=== PATIENT | female | born 1950 | race Caucasian/White ===

== ENCOUNTER 2018-07-09 18:46 | Observation (INO) | payer OTHER ==
[2018-07-09] MEDS ORDERED: ASPIRIN 81 MG CHEWABLE TABLETS PO ONE (18:52)
--- NOTE | 2018-07-09 18:52 | PDOC ---
Rapid Medical Evaluation Chief Complaint: Palpitations Time Seen by Provider: 07/09/18 18:50 Medical Evaluation: Allergies Allergy/AdvReac Type Severity Reaction Status Date / Time Sulfa (Sulfonamide Allergy Verified 07/09/18 18:49 Antibiotics) 07/09/18 18:51 Pt c/o: midsternal chest stabbing x 2 days w/ palpitation today Pt on brief exam: vss, lcta, no reproducible cp pt ordered for: cardiac w/u Pt to proceed to ED Discharge Disposition - Diagnosis Palpitations - Referrals - Patient Instructions - Post Discharge Activity
[2018-07-09] MEDS ORDERED: ASPIRIN 81 MG CHEWABLE TABLETS ONE (20:01)
[2018-07-09 20:23] LABS: HEMATOCRIT 37.5 % (32.4-45.2); LYMPH % 33.4 % (8-40); MCHC 34.6 g/dl (32.0-36.0); MEAN CELL VOLUME 89.5 fl (80-96); MEAN PLT VOLUME 9.9 fl (7.5-11.1); MONO % 10.5 % (3.8-10.2); NEUT % 54.1 % (42.8-82.8); PLATELET COUNT 214 K/MM3 (134-434); RDW 15.5 % (11.6-15.6); WHITE BLOOD COUNT 7.4 K/mm3 (4.0-10.0)
[2018-07-09 20:36] LABS: INR 0.96 (0.83-1.09); PROTHROMBIN TIME (PATIENT) 11.3 SEC (9.7-13.0)
[2018-07-09 20:59] LABS: ALBUMIN 3.7 g/dl (3.4-5.0); ALK PHOS 92 U/L (45-117); ANION GAP 11 MMOL/L (8-16); BILIRUBIN,TOTAL 0.4 mg/dL (0.2-1); BLOOD UREA NITROGEN 15 mg/dL (7-18); CALCIUM 9.1 mg/dL (8.5-10.1); CHLORIDE 104 mmol/L (98-107); CO2 25 mmol/L (21-32); CREATININE 0.8 mg/dL (0.55-1.3); GLUCOSE,RANDOM 104 mg/dL (74-106); SGPT/ALT 22 U/L (13-61); SODIUM 140 mmol/L (136-145); TOT PROT 8.1 g/dl (6.4-8.2)
[2018-07-09 21:00] LABS: MAGNESIUM 2.1 mg/dL (1.8-2.4); POTASSIUM 4.3 mmol/L (3.5-5.1); SGOT/AST 20 U/L (15-37)
--- NOTE | 2018-07-09 21:12 | PDOC ---
History of Present Illness - General Chief Complaint: Palpitations Stated Complaint: Palpitations Time Seen by Provider: 07/09/18 18:50 History Source: Patient - History of Present Illness Initial Comments: 07/09/18 21:57 67 year old female with midsternal chest pain 2 days with palpitations today with chest discomfort and slight dizziness. denies NVD, abdominal pain, urinary symptoms, headache, weakness. p,hx: cardiac catherization at [facility] 6 years ago . no recent cardiology follow up. PMD Dr. jain [facility] Past History - Past Medical History Allergies/Adverse Reactions: Allergies Allergy/AdvReac Type Severity Reaction Status Date / Time Sulfa (Sulfonamide Allergy Verified 07/09/18 18:49 Antibiotics) Home Medications: Ambulatory Orders Amlodipine Besylate/Benazepril [Lotrel 5-10 mg Capsule] 5 mg PO DAILY 12/18/13 Atorvastatin Ca [Lipitor] 20 mg PO HS 12/18/13 Benazepril HCl 10 mg PO DAILY 07/10/18 Isosorbide Mononitrate [Isosorbide Mononitrate ER] 30 mg PO DAILY 07/10/18 Sitagliptin Phosphate [Januvia] 100 mg PO DAILY 07/10/18 Aspirin [ASA -] 81 mg PO DAILY tab.chew 07/11/18 Metoprolol Tartrate [Lopressor -] 25 mg PO BID #60 tablet 07/11/18 Ranitidine [Zantac -] 150 mg PO DAILY tablet 07/11/18 Cardiac Disorders: Yes (STENT) COPD: No Diabetes: Yes (NIDM) HTN: Yes Hypercholesterolemia: Yes - Surgical History Cardiac Surgery: Yes (stents) - Immunization History Immunization Up to Date: Yes - Suicide/Smoking/Psychosocial Hx Smoking History: Never smoked Hx Alcohol Use: No Drug/Substance Use Hx: No Substance Use Type: None *Physical Exam - Vital Signs Last Vital Signs Temp Pulse Resp BP Pulse Ox 98 F 62 18 145/74 100 07/11/18 10:00 07/11/18 10:00 07/11/18 10:00 07/11/18 10:00 07/11/18 10:00 - Physical Exam General Appearance: Yes: Appropriately Dressed Respiratory/Chest: positive: Lungs Clear, Normal Breath Sounds. negative: Chest Tender Cardiovascular: positive: Regular Rhythm, Regular Rate Gastrointestinal/Abdominal: positive: Normal Bowel Sounds, Soft Musculoskeletal: positive: Normal Inspection Extremity: positive: Normal Capillary Refill, Normal Inspection, Normal Range of Motion Integumentary: positive: Normal Color, Dry, Warm Neurologic: positive: Fully Oriented, Alert, Normal Mood/Affect Heart Score/ECG Review - History History: Moderately suspicious - Electrocardiogram EKG: Normal - Age Age: >/= 65 - Risk Factors Risk Factors Heart Score: Yes Hx Hypercholesterolemia, Yes Hx Hypertension, Yes Hx Diabetes Based on the list above the patient has:: 1-2 risk factors - Troponin Troponin: </= normal limit - Score Heart Score - Total: 4 - ECG Intrepretation Rhythm: Regular Rhythm Comment:: 07/09/18 22:16 sinus bradycardia: 56bpm Moderate Sedation - Procedure Monitoring Vital Signs: Procedure Monitoring Vital Signs Temperature 98 F 07/11/18 10:00 Pulse Rate 62 07/11/18 10:00 Respiratory Rate 18 07/11/18 10:00 Blood Pressure 145/74 07/11/18 10:00 O2 Sat by Pulse Oximetry (%) 100 07/11/18 10:00 ED Treatment Course - LABORATORY CBC & Chemistry Diagram: 07/11/18 06:43 07/11/18 06:43 - ADDITIONAL ORDERS Additional order review: 07/09/18 20:14 RBC 4.20 MCV 89.5 MCHC 34.6 RDW 15.5 D MPV 9.9 Neutrophils % 54.1 Lymphocytes % 33.4 Monocytes % 10.5 H Eosinophils % 1.0 Basophils % 1.0 - Medications Given in the ED: ED Medications Discontinued Medications Generic Name Dose Route Start Last Admin Trade Name Lonnieq PRN Reason Stop Dose Admin Acetaminophen 650 mg 07/10/18 21:52 07/10/18 21:59 Tylenol - PO 07/10/18 21:53 650 mg ONCE ONE Administration Amlodipine Besylate 5 mg 07/10/18 10:00 07/11/18 13:56 Norvasc - PO 5 mg DAILY FAIZA Administration Aspirin 162 mg 07/09/18 18:52 07/09/18 20:13 Asa - PO 07/09/18 18:53 162 mg ONCE ONE Administration Aspirin 81 mg 07/10/18 10:00 07/11/18 13:56 Asa - PO 81 mg DAILY FAIZA Administration Atorvastatin Calcium 20 mg 07/10/18 22:00 07/10/18 21:59 Lipitor - PO 20 mg HS FAIZA Administration Enoxaparin Sodium 40 mg 07/10/18 10:00 07/11/18 15:05 Lovenox - SQ Not Given DAILY FAIZA Insulin Aspart 1 vial 07/10/18 07:00 07/11/18 13:57 Novolog Vial Sliding Scale - SQ Not Given [facility] Protocol Lisinopril 10 mg 07/10/18 10:00 07/11/18 13:57 Prinivil PO 10 mg DAILY FAIZA Administration Metoprolol Tartrate 25 mg 07/10/18 10:00 07/11/18 13:56 Lopressor - PO 25 mg BID FAIZA Administration Pneumococcal 13-Valent Conj Vacc 0.5 ml 07/10/18 20:35 07/10/18 22:32 Prevnar 13 Syringe - IM 07/10/18 20:36 0.5 ml .ONCE ONE Administration Ranitidine HCl 150 mg 07/10/18 10:00 07/11/18 13:57 Zantac - PO 150 mg DAILY FAIZA Administration Medical Decision Making - Medical Decision Making 07/09/18 22:15 A: chest pain P: labs EKG chest xray ekg patient to placed on observation for palpitation. signed out to Dr. jensen/ Suni *DC/Admit/Observation/Transfer Diagnosis at time of Disposition: Palpitations - Discharge Dispostion Disposition: HOME Condition at time of disposition: Improved Decision to Admit order: Yes - Prescriptions - Referrals - Patient Instructions - Post Discharge Activity
[2018-07-09 21:58] LABS: URINE APPEARANCE CLEAR; URINE BILIRUBIN NEGATIVE (<2.0 mg/dL); URINE COLOR COLORLESS; URINE GLUCOSE (UA) NEGATIVE (NEGATIVE); URINE KETONE NEGATIVE (NEGATIVE); URINE LEUK ESTERASE NEGATIVE (NEGATIVE); URINE NITRITE NEGATIVE (NEGATIVE); URINE PROTEIN NEGATIVE (NEGATIVE); URINE UROBILINOGEN NEGATIVE mg/dL (0.2-1.0)
--- NOTE | 2018-07-09 23:56 | HP ---
CHIEF COMPLAINT: Chest pain, palpitations PCP: HISTORY OF PRESENT ILLNESS: The patient is Surinamese speaking. The history was abtained with the help of [employer] lead #[id number] The patient is a 67 yo f w/ PMH CAD s/p stenting in 2011, DM, HTN, HLD who comes into the ED c/o a 2 day history of right sided chest pain and palpitations. The patient states that since Sunday evening, she has been experiencing a sharp, right sided chest pain which does not radiate. The patient states that the pain was initially 10/10 in intensity, but has been improving since it's onset. The patient states that the pain is exacerbated by movement and alleviated by staying still. The patient had a cardiac cath and stent placement in June of 2012 at [facility], but has not been able to follow up with a heading matcher and assembler since then due to insurance issues. The patient denies SOB, abdominal pain, fevers, chills. ER course was notable for: (1) Trop negative x1 (2) EKG Showing sinus curt at 56 (3) CXR WNL Recent Travel: none PAST MEDICAL HISTORY: see HPI PAST SURGICAL HISTORY: Stenting in june of 2012 Hysterectomy Social History: Smoking: never Alcohol: none Drugs: none Family History: Father of a stroke Mother 2/2 unknown cardiac complications Allergies Sulfa (Sulfonamide Antibiotics) Allergy (Verified 07/09/18 18:49) HOME MEDICATIONS: Home Medications Medication Instructions Recorded Amlodipine Besylate/Benazepril 1 each PO DAILY 12/18/13 [Lotrel 5-10 mg Capsule] Aspirin 81 mg PO DAILY 12/18/13 Atorvastatin Ca [Lipitor -] 20 mg PO HS 12/18/13 Calcium Carb/Vit D3/Minerals 1 each PO DAILY 12/18/13 [Calcium +D & Min Chew Tab] Clopidogrel Bisulfate [Plavix -] 75 mg PO DAILY 12/18/13 Cromolyn Na 4% Ophth Soln [Crolom] 10 ml OD TID 12/18/13 Glipizide Xl [Glucotrol Xl -] 10 mg PO DAILY@0700 12/18/13 Hypromellose [Artificial Tears] 15 ml OP BID PRN 12/18/13 Metoprolol Succinate [Toprol XL -] 25 mg PO BID 12/18/13 Nitroglycerin [Nitrostat] 0.4 mg SL ONCE PRN 12/18/13 Ranitidine HCl [Zantac] 150 mg PO DAILY 07/25/14 Acetaminophen [Tylenol 500 mg PO Q6H #20 tablet 07/26/14 .Extra-Strength -] levoFLOXacin [Levaquin -] 500 mg PO DAILY #7 tablet 11/12/14 REVIEW OF SYSTEMS CONSTITUTIONAL: Absent: fever, chills, diaphoresis, generalized weakness, malaise, loss of appetite, weight change HEENT: Absent: rhinorrhea, nasal congestion, throat pain, throat swelling, difficulty swallowing, mouth swelling, ear pain, eye pain, visual changes CARDIOVASCULAR: Absent: syncope, lightheadedness, peripheral edema RESPIRATORY: Absent: cough, shortness of breath, dyspnea with exertion, orthopnea, wheezing, stridor, hemoptysis GASTROINTESTINAL: Absent: abdominal pain, abdominal distension, nausea, vomiting, diarrhea, constipation, melena, hematochezia GENITOURINARY: Absent: dysuria, frequency, urgency, hesitancy, hematuria, flank pain, genital pain MUSCULOSKELETAL: Absent: myalgia, arthralgia, joint swelling, back pain, neck pain SKIN: Absent: rash, itching, pallor HEMATOLOGIC/IMMUNOLOGIC: Absent: easy bleeding, easy bruising, lymphadenopathy, frequent infections ENDOCRINE: Absent: unexplained weight gain, unexplained weight loss, heat intolerance, cold intolerance NEUROLOGIC: Absent: headache, focal weakness or paresthesias, dizziness, unsteady gait, seizure, mental status changes, bladder or bowel incontinence PSYCHIATRIC: Absent: anxiety, depression, suicidal or homicidal ideation, hallucinations. PHYSICAL EXAMINATION Vital Signs - 24 hr 07/09/18 18:50 Temperature 98.2 F Pulse Rate 62 Respiratory 16 Rate Blood Pressure 134/64 O2 Sat by Pulse 100 Oximetry (%) GENERAL: Awake, alert, and fully oriented, in no acute distress. HEAD: Normal with no signs of trauma. EYES: Pupils equal, round and reactive to light, extraocular movements intact, sclera anicteric, conjunctiva clear. No lid lag. NECK: Normal range of motion, supple without lymphadenopathy, JVD, or masses. LUNGS: Breath sounds equal, clear to auscultation bilaterally. No wheezes, and no crackles. No accessory muscle use. HEART: Regular rate and rhythm, normal S1 and S2 without murmur, rub or gallop. ABDOMEN: Soft, nontender, not distended, normoactive bowel sounds, no guarding, no rebound, no masses. No hepatomegaly or splenomegaly. LOWER EXTREMITIES: 2+ pulses, warm, well-perfused. No calf tenderness. No peripheral edema. NEUROLOGICAL: Cranial nerves II-X intact. Normal speech. Normal gait. PSYCHIATRIC: Cooperative. Good eye contact. Appropriate mood and affect. SKIN: Warm, dry, normal turgor, no rashes or lesions noted, normal capillary refill. Laboratory Results - last 24 hr 07/09/18 07/09/18 07/09/18 20:14 20:14 20:14 WBC 7.4 RBC 4.20 Hgb 13.0 Hct 37.5 MCV 89.5 MCH 31.0 MCHC 34.6 RDW 15.5 D Plt Count 214 D MPV 9.9 Absolute Neuts (auto) 4.0 Neutrophils % 54.1 Lymphocytes % 33.4 Monocytes % 10.5 H Eosinophils % 1.0 Basophils % 1.0 Nucleated RBC % 0 PT with INR 11.30 INR 0.96 Sodium 140 Potassium 4.3 Chloride 104 Carbon Dioxide 25 Anion Gap 11 BUN 15 Creatinine 0.8 Creat Clearance w eGFR > 60 Random Glucose 104 Calcium 9.1 Magnesium 2.1 Total Bilirubin 0.4 AST 20 ALT 22 Alkaline Phosphatase 92 Creatine Kinase 132 Troponin I < 0.02 Total Protein 8.1 Albumin 3.7 Urine Color Urine Appearance Urine pH Ur Specific [place] Urine Protein Urine Glucose (UA) Urine Ketones Urine Blood Urine Nitrite Urine Bilirubin Urine Urobilinogen Ur Leukocyte Esterase 07/09/18 21:49 WBC RBC Hgb Hct MCV MCH MCHC RDW Plt Count MPV Absolute Neuts (auto) Neutrophils % Lymphocytes % Monocytes % Eosinophils % Basophils % Nucleated RBC % PT with INR INR Sodium Potassium Chloride Carbon Dioxide Anion Gap BUN Creatinine Creat Clearance w eGFR Random Glucose Calcium Magnesium Total Bilirubin AST ALT Alkaline Phosphatase Creatine Kinase Troponin I Total Protein Albumin Urine Color Colorless Urine Appearance Clear Urine pH 5.0 D Ur Specific [place] 1.005 L Urine Protein Negative Urine Glucose (UA) Negative Urine Ketones Negative Urine Blood Negative Urine Nitrite Negative Urine Bilirubin Negative Urine Urobilinogen Negative Ur Leukocyte Esterase Negative ASSESSMENT/PLAN: The patient is a 67 yo f w/ PMH CAD, DM, HTN, HLD who comes into the ED c/o right sided chest pain/pressure and palpitations for the past 2 days. #Chest pain/pressure likely 2/2 musculoskeletal strain, r/o ACS -must r/o ACS given patient's risk factors, the fact that she has DM and the fact that she is female. -trop negative x1 -EKG unremarkable -pain improving -Will check TSH for possible cause of palpitations -Patient on toprol xl 25 BID according to EMR, which is an unconventional dosing and may contribute to her ssx -Will change patient to lopressor PO 25 BID -monitor on tele -lipid panel in the AM -patient may benefit from repeat stress test -obtain cath records from [facility] in the AM #DM -ISS ACHS -BGM ACHS -A1c in the AM #FEN -no fluids indicated -lytes WNL -diabetic diet #Prophy -lovenox 40mg SQ daily #Dispo -admit tele obs Visit type - Emergency Visit Emergency Visit: Yes ED Registration Date: 07/09/18 Care time: The patient presented to the Emergency Department on the above date and was hospitalized for further evaluation of their emergent condition. - New Patient This patient is new to me today: Yes Date on this admission: 07/10/18 - Critical Care Critical Care patient: No
--- NOTE | 2018-07-10 02:29 | PN ---
Teaching Attending Note Name of Resident: Chucho Long ATTENDING PHYSICIAN STATEMENT I saw and evaluated the patient. I reviewed the resident's note and discussed the case with the resident. I agree with the resident's findings and plan as documented. SUBJECTIVE: Seen and examined; please see resident note for further details; in summation this is a 67 y/o HF with a PMH of CAD s/p PCI at [facility] 2011 (likely [facility] as still on plavix) with no stress test/caths since. She presents with atypical, reproducible chest pain on the righr upper chest near the sternum not made better with anything and that is made worse with movement; she hasn't seen anyone else for this. Not typical in nature; radiates throughout the area. The pain began Sunday evening. No recent trauma, etc. etc. She has also been dizzy for several days; noted to have HR in the low 50s and gideon taking metoprolol succinate twice daily. Troponin negative x2. Records from [facility] pending to delineate her coronary anatomy from her prior cath. TSH, A1c, pending. EKG without frankly concerning ST-T changes. Will place on medicine service on observation to rule out ACS. 10 sys ROS done and negative aside from HPI PMH and PSH reviewed FH asked and noncontributory Socially denies current EtOH or Tobacco abuse OBJECTIVE: VS, labs, imaging reviewed NAD, resting in bed RRR s1/2 no mgr lungs CTAB with sym expansion NT ND +BS CN2-12 wnl, no fnd CBC, chemistry, LFTs, unremarkable. Cardiac enzymes negative x2. CXR unremarkable EKG reviewed; essentially unchanged from prior studies ASSESSMENT AND PLAN: This is a 67 y/o female who is high risk for CAD presenting with atypical chest pain, will rule out acute coronary syndrome 1) Atypical Chest Pain -Needs old records from [facility] to delineate coronary anatomy; she hasn't been following with CV so we will refer her to cardiology upon discharge. -Monitor tele, obtain a third troponin. Checking TSH, A1c, Lipids -Treat any underlying musculoskeletal CP -Obtaining stress test (givenher dizziness, etc. would recommend pharm over treadmill) and if indicated from our results would involve cardiology. 2) CAD -Continue home medications aside from changing the succinate to tartrate; she has had the stent many years ago so will need to discuss with CV as an outpatient any potential changes to her antiplatelet tx. 3) Dizziness with palpitations -Could be related to the low HR (50s) which may be related to her dose of BB. Will change her succinate from 25 BID to tartrate 25 BID and observe for response. She did have an increase in her HR from 8-10 bpm when a chronotropic response was elicited by ambulation. We will monitor telemetry and observe. Furthermore if she is getting any hypoglycemia at home from sulfonylurea use this could contribute so we will hold her home CASTRO; as she is >65 it would be prudent to DC this drug all together. 4) DM -Hold PO meds; SSI while inpatient. 5) HTN -Monitor when inpatient; GDMT on DC Full Code
[2018-07-10] MEDS: INSULIN SLIDING SCALE (NOVOLOG) 1 VIAL SQ SCH ×4 (06:22→21:58)
[2018-07-10 06:36] LABS: HEMATOCRIT 37.8 % (32.4-45.2); HEMOGLOBIN 12.2 GM/dL (10.7-15.3); MCH 29.4 pg (25.7-33.7); MCHC 32.4 g/dl (32.0-36.0); MEAN CELL VOLUME 90.8 fl (80-96); MEAN PLT VOLUME 9.8 fl (7.5-11.1); PLATELET COUNT 174 K/MM3 (134-434); RBC 4.16 M/mm3 (3.60-5.2); RDW 15.2 % (11.6-15.6); WHITE BLOOD COUNT 6.5 K/mm3 (4.0-10.0)
[2018-07-10 07:00] LABS: INR 1.03 (0.83-1.09); PROTHROMBIN TIME (PATIENT) 12.1 SEC (9.7-13.0)
[2018-07-10 09:37] LABS: ALBUMIN 3.2 g/dl (3.4-5.0); ALK PHOS 88 U/L (45-117); ANION GAP 7 MMOL/L (8-16); BILIRUBIN,TOTAL 0.4 mg/dL (0.2-1); BLOOD UREA NITROGEN 16 mg/dL (7-18); CALCIUM 8.7 mg/dL (8.5-10.1); CHLORIDE 106 mmol/L (98-107); CHOLESTEROL 139 mg/dL (50-200); CO2 27 mmol/L (21-32); CREATININE 0.8 mg/dL (0.55-1.3); GLUCOSE,RANDOM 113 mg/dL (74-106); HDL CHOLESTEROL 57 mg/dL (40-60); MAGNESIUM 2.2 mg/dL (1.8-2.4); PHOSPHOROUS 4.4 mg/dL (2.5-4.9); POTASSIUM 3.8 mmol/L (3.5-5.1); SGOT/AST 16 U/L (15-37); SGPT/ALT 20 U/L (13-61); SODIUM 139 mmol/L (136-145); TOT PROT 7.2 g/dl (6.4-8.2); TRIGLYCERIDES 149 mg/dL (0-150)
[2018-07-10] MEDS ORDERED: PATIENT'S OWN MEDICATION (NON-FORMULARY) (Amlodipine Besylate/Benazepril [Lotrel 5-10 Mg C PO SCH (10:00)
--- NOTE | 2018-07-10 11:12 | PN ---
Physical Exam: SUBJECTIVE: Patient seen and examined. Pt. complains of intermittent chest pain w/ burning in right side, and with palpitations associated with anxiety. Pt. also had "heaviness" in head that is not associated with chest pain. Pt. denies any chest pain currently. OBJECTIVE: Vital Signs Period Temp Pulse Resp BP Sys/[place] Pulse Ox Last 24 Hr 98.2 F 56-62 14-18 125-135/54-78 98-100 GENERAL: The patient is awake, alert, and fully oriented, in no acute distress. EYES: Sclera anicteric, conjunctiva clear. No ptosis. ENT: Ears normal, nares patent, moist mucous membranes. NECK: Trachea midline, full range of motion, supple, No JVD LUNGS: Breath sounds equal, clear to auscultation bilaterally, no wheezes, no crackles, no accessory muscle use. HEART: Regular rate and rhythm, S1, S2 without murmur, rub or gallop. ABDOMEN: Soft, nontender, nondistended, normoactive bowel sounds, no guarding, no rebound EXTREMITIES: 2+ dorsal pedal pulses, warm, no calf tenderness, well-perfused, no edema, moves all limbs spontaneously with equal strength. NEUROLOGICAL: Normal speech, gait not observed. PSYCH: Normal mood, normal affect. SKIN: Warm, dry, normal turgor Laboratory Results - last 24 hr 07/09/18 07/09/18 07/09/18 20:14 20:14 20:14 WBC 7.4 RBC 4.20 Hgb 13.0 Hct 37.5 MCV 89.5 MCH 31.0 MCHC 34.6 RDW 15.5 D Plt Count 214 D MPV 9.9 Absolute Neuts (auto) 4.0 Neutrophils % 54.1 Lymphocytes % 33.4 Monocytes % 10.5 H Eosinophils % 1.0 Basophils % 1.0 Nucleated RBC % 0 PT with INR 11.30 INR 0.96 Sodium 140 Potassium 4.3 Chloride 104 Carbon Dioxide 25 Anion Gap 11 BUN 15 Creatinine 0.8 Creat Clearance w eGFR > 60 POC Glucometer Random Glucose 104 Hemoglobin A1c % Calcium 9.1 Phosphorus Magnesium 2.1 Total Bilirubin 0.4 AST 20 ALT 22 Alkaline Phosphatase 92 Creatine Kinase 132 Troponin I < 0.02 Total Protein 8.1 Albumin 3.7 Triglycerides Cholesterol Total LDL Cholesterol HDL Cholesterol TSH Urine Color Urine Appearance Urine pH Ur Specific [place] Urine Protein Urine Glucose (UA) Urine Ketones Urine Blood Urine Nitrite Urine Bilirubin Urine Urobilinogen Ur Leukocyte Esterase 07/09/18 07/10/18 07/10/18 21:49 01:32 05:52 WBC 6.5 RBC 4.16 Hgb 12.2 Hct 37.8 MCV 90.8 MCH 29.4 MCHC 32.4 RDW 15.2 Plt Count 174 MPV 9.8 Absolute Neuts (auto) Neutrophils % Lymphocytes % Monocytes % Eosinophils % Basophils % Nucleated RBC % PT with INR INR Sodium Potassium Chloride Carbon Dioxide Anion Gap BUN Creatinine Creat Clearance w eGFR POC Glucometer Random Glucose Hemoglobin A1c % Calcium Phosphorus Magnesium Total Bilirubin AST ALT Alkaline Phosphatase Creatine Kinase Troponin I < 0.02 Total Protein Albumin Triglycerides Cholesterol Total LDL Cholesterol HDL Cholesterol TSH Urine Color Colorless Urine Appearance Clear Urine pH 5.0 D Ur Specific [place] 1.005 L Urine Protein Negative Urine Glucose (UA) Negative Urine Ketones Negative Urine Blood Negative Urine Nitrite Negative Urine Bilirubin Negative Urine Urobilinogen Negative Ur Leukocyte Esterase Negative 07/10/18 07/10/18 07/10/18 05:52 05:52 05:52 WBC RBC Hgb Hct MCV MCH MCHC RDW Plt Count MPV Absolute Neuts (auto) Neutrophils % Lymphocytes % Monocytes % Eosinophils % Basophils % Nucleated RBC % PT with INR 12.10 INR 1.03 Sodium 139 Potassium 3.8 Chloride 106 Carbon Dioxide 27 Anion Gap 7 L BUN 16 Creatinine 0.8 Creat Clearance w eGFR > 60 POC Glucometer Random Glucose 113 H Hemoglobin A1c % 7.3 H Calcium 8.7 Phosphorus 4.4 Magnesium 2.2 Total Bilirubin 0.4 AST 16 ALT 20 Alkaline Phosphatase 88 Creatine Kinase Troponin I Total Protein 7.2 Albumin 3.2 L Triglycerides 149 Cholesterol 139 Total LDL Cholesterol 63 HDL Cholesterol 57 TSH 3.23 Urine Color Urine Appearance Urine pH Ur Specific [place] Urine Protein Urine Glucose (UA) Urine Ketones Urine Blood Urine Nitrite Urine Bilirubin Urine Urobilinogen Ur Leukocyte Esterase 07/10/18 07/10/18 07/10/18 05:52 06:16 10:07 WBC RBC Hgb Hct MCV MCH MCHC RDW Plt Count MPV Absolute Neuts (auto) Neutrophils % Lymphocytes % Monocytes % Eosinophils % Basophils % Nucleated RBC % PT with INR INR Sodium Potassium Chloride Carbon Dioxide Anion Gap BUN Creatinine Creat Clearance w eGFR POC Glucometer [id number] Random Glucose Hemoglobin A1c % Calcium Phosphorus Magnesium Total Bilirubin AST ALT Alkaline Phosphatase Creatine Kinase Troponin I < 0.02 Total Protein Albumin Triglycerides Cancelled Cholesterol Cancelled Total LDL Cholesterol Cancelled HDL Cholesterol Cancelled TSH Urine Color Urine Appearance Urine pH Ur Specific [place] Urine Protein Urine Glucose (UA) Urine Ketones Urine Blood Urine Nitrite Urine Bilirubin Urine Urobilinogen Ur Leukocyte Esterase Active Medications Current Medications Amlodipine Besylate (Norvasc -) 5 mg PO DAILY [facility] Aspirin (Asa -) 81 mg PO DAILY [facility] Atorvastatin Calcium (Lipitor -) 20 mg PO HS [facility] Enoxaparin Sodium (Lovenox -) 40 mg SQ DAILY [facility] Insulin Aspart (Novolog Vial Sliding Scale -) 1 vial SQ ACHS [facility]; Protocol Last Admin: 07/10/18 06:22 Dose: Not Given Lisinopril (Prinivil) 10 mg PO DAILY [facility] Metoprolol Tartrate (Lopressor -) 25 mg PO BID [facility] Ranitidine HCl (Zantac -) 150 mg PO DAILY [facility] Home Medications Medication Instructions Recorded Amlodipine Besylate/Benazepril 1 each PO DAILY 12/18/13 [Lotrel 5-10 mg Capsule] Aspirin 81 mg PO DAILY 12/18/13 Atorvastatin Ca [Lipitor -] 20 mg PO HS 12/18/13 Calcium Carb/Vit D3/Minerals 1 each PO DAILY 12/18/13 [Calcium +D & Min Chew Tab] Hypromellose [Artificial Tears] 15 ml OP BID PRN 12/18/13 Metoprolol Succinate [Toprol XL -] 25 mg PO BID 12/18/13 Nitroglycerin [Nitrostat] 0.4 mg SL ONCE PRN 12/18/13 Ranitidine HCl [Zantac] 150 mg PO DAILY 07/25/14 Acetaminophen [Tylenol 500 mg PO Q6H #20 tablet 07/26/14 .Extra-Strength -] Sitagliptin Phosphate [Januvia -] 25 mg PO DAILY 07/10/18 ASSESSMENT/PLAN: The patient is a 67 yo F w/ PMHx. CAD s/p stenting in 2011, DM, HTN, HLD presents to the ED with a 2 day history of right sided chest pain and palpitations. -R/O ACS Heart Score: 5 Troponin Neg. x 3 EKG: NSR c/w Metoprolol Tartrate 25mg BID Given HEART Score Pt. underwent part 1 of the Sestamibi Stress test, will continue w/ Part 2 tomorrow including echocardiography. c/w telemetry monitoring Stress test in 2016 at [facility] showed EF of 70%, mild small distal anterolateral perfusion defect likely due to breast attenuation Pt.'s senior network engineer is Cesia Reed ([phone]) -DM ISS hold oral medications BGM TIDAC ISS TIDAC A1c: 7.3% -HTN c/w Lopressor 25mg BID BP controlled -F/E/N No IVF, encourage PO intake monitor electrolytes replete as needed Diabetic diet -DVT Ppx. Lovenox 40mg SQ Visit type - Emergency Visit Emergency Visit: Yes ED Registration Date: 07/09/18 Care time: The patient presented to the Emergency Department on the above date and was hospitalized for further evaluation of their emergent condition. - New Patient This patient is new to me today: Yes Date on this admission: 07/10/18 - Critical Care Critical Care patient: No - Discharge Referral Referred to [facility] Med P.C.: No
--- NOTE | 2018-07-10 11:45 | EKG ---
Test Reason : Blood Pressure : / mmHG Vent. Rate : 056 BPM Atrial Rate : 056 BPM P-R Int : 136 ms QRS Dur : 096 ms QT Int : 444 ms P-R-T Axes : -20 017 017 degrees QTc Int : 428 ms SINUS BRADYCARDIA OTHERWISE NORMAL ECG WHEN COMPARED WITH ECG OF 12-NOV-2014 20:53, NO SIGNIFICANT CHANGE WAS FOUND Confirmed by TIAGO ARREDONDO MD ([id number]) on 07/10/2018 11:45:14 AM Referred By: ANSELMO Confirmed By:TIAGO ARREDONDO MD
[2018-07-10] MEDS: ASPIRIN 81 MG CHEWABLE TABLETS PO SCH (14:37)
[2018-07-10] MEDS: LISINOPRIL 10 MG TABLET (FP) PO SCH (14:38)
[2018-07-10] MEDS: amLODIPine BESYLATE 5 MG TABLET (FP) PO SCH (14:38)
[2018-07-10] MEDS: METOPROLOL TARTRATE 25 MG TABLET (FP) PO SCH ×2 (14:38→22:03)
[2018-07-10] MEDS: RANITIDINE HCL 150 MG TABLET (FP) PO SCH (14:39)
--- NOTE | 2018-07-10 15:01 | PN ---
Teaching Attending Note Name of Resident: Trevin Pérez ATTENDING PHYSICIAN STATEMENT I saw and evaluated the patient. I reviewed the resident's note and discussed the case with the resident. I agree with the resident's findings and plan as documented. SUBJECTIVE: no fever or chills. denies CP at time of eval ( 10:30am ) has no SOB. reports SOB and chest discomfort with exertion . 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 re[prots stopping plavix per card advise a year ago and cont to take ASA she missed her asa for a week now OBJECTIVE: NAD Cv: RRR. , no MRG lungs: CTAB ext : no edema Abd: soft, Nt, Nd , NL BS ASSESSMENT AND PLAN: 67 y/o lady with h/o HTN, DM, HLP, CAD s/p PCI with stents in 2011 who presented with L sided CP x 2. 1- L sided CP : has some typical features , and patient is at high risk . she did not take ASA x 1 week and has exertional sx . EKG with L 1st degree AV block. TWI in V1, 2 ( old ) , trop ng x 2 - check stress test ( Sestamibi ) - echo - card consult - obtain records - cont asa and BB 2- Bradycardia : has 1st degree AV block. will confirm her dose of BB . - cont lopressor 2 bid for now ( might have been on toprol 25 bid ) - tele 3- DM : denies any hypoglycemia a nayeli - cont SSI while here 4- Dispo : pending cardiac w/u
[2018-07-10] MEDS: ENOXAPARIN NA (PORCINE) 40 MG/0.4 ML DISP.SYRIN SQ SCH (15:59)
--- NOTE | 2018-07-10 17:00 | CON.CARD ---
Consult Consult Specialty:: Cardiology Referred by:: Hospitalist Reason for Consultation:: chest pain - History of Present Illness Chief Complaint: chest pain History of Present Illness: 67 year old woman with pmh DM, HTN, HLD, CAD s/p stent years ago, followed by Dr. Reed admitted with 2 day history of who comes into the ED c/o a 2 day history of right sided chest pain and palpitations. pt seen and examined today in nad. no further chest pain or palpitations. had part 1 of stress test today and awaiting echo and part 2 of stress. - History Source History Provided By: Patient, Medical Record Limitations to Obtaining History: No Limitations - Past Medical History Cardio/Vascular: Yes: CAD, HTN, Hyperlipdemia - Alcohol/Substance Use Hx Alcohol Use: No - Smoking History Smoking history: Never smoked - Social History ADL: Independent History of Recent Travel: No Home Medications - Allergies Allergies/Adverse Reactions: Allergies Allergy/AdvReac Type Severity Reaction Status Date / Time Sulfa (Sulfonamide Allergy Verified 07/09/18 18:49 Antibiotics) - Home Medications Home Medications: Ambulatory Orders Amlodipine Besylate/Benazepril [Lotrel 5-10 mg Capsule] 5 mg PO DAILY 12/18/13 Aspirin 81 mg PO DAILY 12/18/13 Atorvastatin Ca [Lipitor -] 20 mg PO HS 12/18/13 Calcium Carb/Vit D3/Minerals [Calcium +D & Min Chew Tab] 1 each PO DAILY Hypromellose [Artificial Tears] 15 ml OP BID PRN 12/18/13 Metoprolol Succinate [Toprol XL -] 25 mg PO DAILY 12/18/13 Nitroglycerin [Nitrostat] 0.4 mg SL ONCE PRN 12/18/13 Ranitidine HCl [Zantac] 150 mg PO DAILY 07/25/14 Acetaminophen [Tylenol .Extra-Strength -] 500 mg PO Q6H #20 tablet 07/26/14 Benazepril HCl 10 mg PO DAILY 07/10/18 Isosorbide Mononitrate [Isosorbide Mononitrate ER] 30 mg PO DAILY 07/10/18 Sitagliptin Phosphate [Januvia -] 25 mg PO DAILY 07/10/18 Sitagliptin Phosphate [Januvia] 100 mg PO DAILY 07/10/18 Family Disease History - Family Disease History Family History: Denies Review of Systems - Review of Systems Constitutional: denies: No Symptoms, Chills, Diaphoresis, Fever, Lethargy, Loss of Appetite, Malaise, Night Sweats, Unintentional Wgt. Loss, Weakness, Other Eyes: denies: No Symptoms, Blind Spots, Blurred Vision, Double Vision, Eye Pain , Floaters, Photophobia, Recent Change in Vision, Other HENT: denies: No Symptoms, Difficult Swallowing, Ear Discharge, Ear Pain, Epistaxis, Gingival Bleeding, Hearing Loss, Mouth Swelling, Nasal Congestion, Ocular Prosthesis, Throat Pain, Toothache, Ringing in Ears, Other Neck: denies: No Symptoms, Decreased ROM, Lumps, Pain on Movement, Stiffness, Swollen Glands, Tenderness, Other Cardiovascular: reports: Chest Pain, Palpitations. denies: No Symptoms, Edema, Shortness of Breath, Other Respiratory: denies: No Symptoms, Cough, Exercise Intolerance, Hemoptysis, Orthopnea, PND, Snoring, SOB, SOB on Exertion, Wheezing, Other Gastrointestinal: denies: No Symptoms, Abdominal Pain, Bloating, Constipation, Diarrhea, Dysphagia, Indigestion, Melena, Nausea, Rectal Bleeding, Vomiting, Vomiting Blood, Other Genitourinary: denies: No Symptoms, Burning, Discharge, Dysuria, Flank Pain, Frequency, Hematuria, Incontinence, Lesions, Menses, Pain, Testicular Mass, Testicular Pain, Testicular Swelling, Urgency, Vaginal Bleeding, Other Breasts: denies: No Symptoms Reported, See HPI, Breast Implants, Discharge from Nipple, Lumps, Pain, Skin Changes, Other Musculoskeletal: denies: No Symptoms, Back Pain, Crepitus, Decreased ROM, Extremity Pain, Joint Pain, Joint Swelling, Muscle Pain, Muscle Cramps, Muscle Weakness, Other Integumentary: denies: No Symptoms, Blister, Bruising, Change in Color, Eczema, Erythema, Incision, Lesions, Lump, Pallor, Pruritis, Rash, Wound, Other Neurological: denies: No Symptoms, Change in LOC, Change in Speech, Confusion, Dizziness, Headache, Incoordination, Numbness, Parasthesia, Pre-Existing Deficit , Seizure, Syncope, Tremors, Unsteady Gait, Weakness, Other Endocrine: denies: No Symptoms, Excessive Sweating, Flushing, Increased Hunger, Increased Thirst, Intolerance to Cold, Intolerance to Heat, Unexplained Weight Gain, Unexplained Weight Loss, Other Hematology/Lymphatic: denies: No Symptoms, Easily Bruised, Excessive Bleeding, Swollen Glands, Other Psychiatric: denies: No Symptoms, Altered Sleep Pattern, Anxiety, Depression, Hallucinations, Panic, Paranoia, Suicidal, Other - Risk Factors Known Risk Factors: Yes: Hypercholesterolemia, Hypertension Vital Signs: Vital Signs Temperature 98.1 F 07/10/18 15:52 Pulse Rate 55 L 07/10/18 15:52 Respiratory Rate 18 07/10/18 15:52 Blood Pressure 109/62 07/10/18 15:52 O2 Sat by Pulse Oximetry (%) 19 L 07/10/18 15:52 Constitutional: Yes: Well Nourished, No Distress, Calm Eyes: Yes: WNL, Conjunctiva Clear, EOM Intact, PERRL HENT: Yes: WNL, Atraumatic, Normocephalic Neck: Yes: WNL, Supple, Trachea Midline Respiratory: Yes: WNL, Regular, CTA Bilaterally. No: Rales, Rhonchi, Wheezes Gastrointestinal: Yes: WNL, Normal Bowel Sounds, Soft. No: Distention, Tenderness Renal/: Yes: WNL Cardiovascular: Yes: WNL, Regular Rate and Rhythm. No: Bradycardia, Tachycardia , Pulse Irregular, Gallop, Rub, Varicosities JVD: No Carotid Bruit: No PMI: Non-Displaced Heart Sounds: Yes: S1, S2. No: Split S2, S3, S4, Clicks, Gallop, Rub, Bruit Murmur: No: Systolic Murmur, Diastolic Murmur Musculoskeletal: Yes: WNL Extremities: Yes: WNL Edema: No Peripheral Pulses WNL: Yes Peripheral Pulses: 2+ Left Doralis Pedis, 2+ Right Dorsalis Pedis Integumentary: Yes: WNL Neurological: Yes: WNL, Alert, Oriented ...Motor Strength: WNL Psychiatric: Yes: WNL, Alert, Oriented - Other Data Labs, Other Data: CBC, BMP 07/10/18 05:52 07/10/18 05:52 INR, PTT INR 1.03 (0.83-1.09) 07/10/18 05:52 Troponin, BNP 07/09/18 07/10/18 07/10/18 20:14 01:32 10:07 Troponin I < 0.02 < 0.02 < 0.02 Troponin, BNP 07/09/18 07/10/18 07/10/18 20:14 01:32 10:07 Troponin I < 0.02 < 0.02 < 0.02 ekg sinus curt 56bpm otherwise normal ecg Imaging - Results Chest X-ray: Report Reviewed, Image Reviewed EKG: Report Reviewed, Image Reviewed Other: Report Reviewed, Image Reviewed Assessment/Plan 67 year old woman with pmh DM, HTN, HLD, CAD s/p stent years ago, followed by Dr. Reed admitted with 2 day history of who comes into the ED c/o a 2 day history of right sided chest pain and palpitations. Chest pain-h/o cad and stent, palpitations no further chest pain or palpitations. ekg showed no ischemia cardiac enzymes wnl had part 1 of stress test today and awaiting echo and part 2 of stress. 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
[2018-07-10 20:35] VITALS: BMI 33.6
[2018-07-10] MEDS ORDERED: PNEUMOC 13-VAL CONJ-DIP CRM/PF 0.5 ML DISP.SYRIN IM ONE (20:35)
[2018-07-10] MEDS ORDERED: ACETAMINOPHEN 325 MG TABLET (FP) PO ONE (21:52)
[2018-07-10] MEDS ORDERED: ATORVASTATIN CA 20 MG TABLET (FP) PO SCH (22:00)
[2018-07-11] MEDS: INSULIN SLIDING SCALE (NOVOLOG) 1 VIAL SQ SCH ×2 (06:27→13:57)
[2018-07-11 07:52] LABS: HEMATOCRIT 40.1 % (32.4-45.2); HEMOGLOBIN 12.8 GM/dL (10.7-15.3); MCH 29.1 pg (25.7-33.7); MEAN CELL VOLUME 90.9 fl (80-96); MEAN PLT VOLUME 9.8 fl (7.5-11.1); PLATELET COUNT 184 K/MM3 (134-434); RBC 4.41 M/mm3 (3.60-5.2); RDW 15.2 % (11.6-15.6); WHITE BLOOD COUNT 6.1 K/mm3 (4.0-10.0)
[2018-07-11 08:41] LABS: ANION GAP 10 MMOL/L (8-16); BLOOD UREA NITROGEN 14 mg/dL (7-18); CALCIUM 8.7 mg/dL (8.5-10.1); CHLORIDE 105 mmol/L (98-107); CO2 26 mmol/L (21-32); CREATININE 0.8 mg/dL (0.55-1.3); GLUCOSE,RANDOM 115 mg/dL (74-106); MAGNESIUM 2.1 mg/dL (1.8-2.4); PHOSPHOROUS 3.6 mg/dL (2.5-4.9); POTASSIUM 4.1 mmol/L (3.5-5.1); SODIUM 140 mmol/L (136-145)
--- NOTE | 2018-07-11 11:17 | PN ---
Teaching Attending Note Name of Resident: Kathie Martin ATTENDING PHYSICIAN STATEMENT I saw and evaluated the patient. I reviewed the resident's note and discussed the case with the resident. I agree with the resident's findings and plan as documented. SUBJECTIVE: No fever or chills . No CP , no palpitations. OBJECTIVE: NAD Cv: RRR. , no MRG lungs: CTAB ext : no edema Abd: soft, NT, Nd , NL BS ASSESSMENT AND PLAN: 67 y/o lady with h/o HTN, DM, HLP, CAD s/p PCI with stents in 2011 who presented with L sided CP x 2. 1- L sided CP: no recurrence - follow stress test results - echo pending - cont asa and BB - appreciate Card help 2- Bradycardia : has 1st degree AV block. rate improved to high 60s. cont lopressor BId ( was on toprol BID at home ) 3- DM : - resume home meds at dc 4- Dispo: likely today if stress test is neg/no further cardiac w/u indicated
--- NOTE | 2018-07-11 13:07 | ECHO ---
Name: ZACH INIGUEZ Exam:Adult Echocardiogram Study Date: 07/11/2018 08:17 AM Age: 67 yrs Reason For Study: needs stress test Height: 56 in Weight: 154 lb BSA: 1.6 m2 MMode/2D Measurements & Calculations RVDd: 2.2 cm Ao root diam: 3.2 cm IVSd: 0.67 cm LA dimension: 3.3 cm LVIDd: 4.7 cm ACS: 1.7 cm LVIDs: 3.1 cm LVPWd: 0.67 cm IVSs: 1.0 cm LVPWs: 0.99 cm EDV(Teich): 102.7 ml ESV(Teich): 36.9 ml Doppler Measurements & Calculations MV E max mckenzie: 78.0 cm/sec Ao V2 max: 139.0 cm/sec MV A max mckenzie: 89.8 cm/sec Ao max P.7 mmHg MV E/A: 0.87 Ao V2 mean: 98.1 cm/sec Ao mean P.3 mmHg Ao V2 VTI: 35.6 cm MR max mckenzie: 505.9 cm/sec TR max mckenzie: 195.7 cm/sec MR max P.8 mmHg TR max P.4 mmHg PI end-d mckenzie: 122.8 cm/sec Med Peak E' Mckenzie: 6.5 cm/sec Med E/e': 12.1 Lat Peak E' Mckenzie: 9.3 cm/sec Lat E/e': 8.4 Procedure A complete two-dimensional transthoracic echocardiogram was performed (2D, M-mode, Doppler and color flow Doppler). Left Ventricle The left ventricular size, thickness and function are normal. The left ventricular ejection fraction is normal. Ejection Fraction = 55-60%. The left ventricular wall motion is normal. Right Ventricle The right ventricle is normal in size and function. Atria Normal left and right atrial size and function. Mitral Valve There is mild mitral regurgitation. Tricuspid Valve No tricuspid regurgitation. There was insufficient TR detected to calculate RV systolic pressure. Aortic Valve The aortic valve is trileaflet. No hemodynamically significant valvular aortic stenosis. No aortic regurgitation is present. Pulmonic Valve Trace pulmonic valvular regurgitation. Great Vessels The aortic root is normal size. Pericardium/Pleura There is no pericardial effusion. Interpretation Summary The left ventricular size, thickness and function are normal The right ventricle is normal in size and function. There is mild mitral regurgitation. Trace pulmonic valvular regurgitation. MD Nito Izaguirre 07/11/2018 01:07 PM
[2018-07-11] MEDS: amLODIPine BESYLATE 5 MG TABLET (FP) PO SCH (13:56)
[2018-07-11] MEDS: METOPROLOL TARTRATE 25 MG TABLET (FP) PO SCH (13:56)
[2018-07-11] MEDS: ASPIRIN 81 MG CHEWABLE TABLETS PO SCH (13:56)
[2018-07-11] MEDS: LISINOPRIL 10 MG TABLET (FP) PO SCH (13:57)
[2018-07-11] MEDS: RANITIDINE HCL 150 MG TABLET (FP) PO SCH (13:57)
[2018-07-11 14:21] VITALS: BP 145/74; PULSE 62; TEMP 98
[2018-07-11] MEDS: ENOXAPARIN NA (PORCINE) 40 MG/0.4 ML DISP.SYRIN SQ SCH (15:05)
--- NOTE | 2018-07-11 18:51 | DS ---
Physical Exam: SUBJECTIVE: Patient seen and examined. Pt. refused flu vaccine, however received [id number] vaccine. Overnight Pt. c/o of headache that has since subsided. Pt. denies any complaints at this time. OBJECTIVE: Vital Signs Period Temp Pulse Resp BP Sys/Malone Pulse Ox Last 24 Hr 97.9 F-98.1 F 55-64 18-20 120-145/62-74 97-100 PHYSICAL EXAM GENERAL: The patient is awake, alert, in no acute distress. HEAD: Normal with no signs of trauma. EYES: Sclera anicteric, conjunctiva clear. ENT: Ears normal, nares patent, moist mucous membranes. NECK: Trachea midline, full range of motion, supple. No JVD LUNGS: Breath sounds equal, clear to auscultation bilaterally, no wheezes, no crackles, no accessory muscle use. HEART: Regular rate and rhythm, S1, S2 without murmur ABDOMEN: Soft, nontender, nondistended, normoactive bowel sounds, no guarding, no rebound EXTREMITIES: 2+ dorsal pedal pulses, warm, no calf tenderness, well-perfused, no edema. NEUROLOGICAL: Normal speech, gait not observed. PSYCH: Normal mood, normal affect. SKIN: Warm, dry, normal turgor, no rashes or lesions noted. LABS Laboratory Results - last 24 hr 07/10/18 07/11/18 07/11/18 21:19 06:20 06:43 WBC 6.1 RBC 4.41 Hgb 12.8 Hct 40.1 MCV 90.9 MCH 29.1 MCHC 32.0 RDW 15.2 Plt Count 184 MPV 9.8 Sodium Potassium Chloride Carbon Dioxide Anion Gap BUN Creatinine Creat Clearance w eGFR POC Glucometer 116 122 Random Glucose Calcium Phosphorus Magnesium 07/11/18 07/11/18 06:43 13:55 WBC RBC Hgb Hct MCV MCH MCHC RDW Plt Count MPV Sodium 140 Potassium 4.1 Chloride 105 Carbon Dioxide 26 Anion Gap 10 BUN 14 Creatinine 0.8 Creat Clearance w eGFR > 60 POC Glucometer 151 Random Glucose 115 H Calcium 8.7 Phosphorus 3.6 Magnesium 2.1 HOSPITAL COURSE: Date of Admission:07/09/18 Date of Discharge: 07/11/18 Pt. was observed for atypical chest pain and palpitations. EKG showed normal sinus rhythm. CXR showed no acute pathology. Pt. monitored on telemetry. Echo showed normal heart size and function with EF of 64%. Sestamibi stress test showed normal heart function during exercise and normal perfusion. Cardiology consult appreciated. Home medications given throughout hospital course. Hospital course discussed and agreed upon with Pt. Minutes to complete discharge: 32 Discharge Summary Reason For Visit: Palpitations,DIZZINESS,CHEST PAIN Condition: Improved - Instructions Diet, Activity, Other Instructions: You came in for chest pain and palpitations. you were found ot have low heart rate We have adjusted your medications: Please STOP taking Metoprolol Succinate 25mg. Throw this medication away. Please take Metoprolol Tartrate 25 mg TWICE a day. Please take this medication as prescribed. We evaluated you with heart function tests (Sestamibi scan) which was normal with no signs of blockage Please follow up with your Primary Care Physician within 1 week. you can follow with dr. Dumont , if you have no licensed direct entry midwife ( we recommend you follow with your old doctor ) Please return to the ED if you are experiencing worsening chest pain or palpitations that will not stop. Referrals: Horace Lo MD [Staff Physician] - 1 Week (Please call to make an appointment. ) Curry Dumont MD [Staff Physician] - 1 Week (Please call to make an appointment) Disposition: HOME - Home Medications Comprehensive Discharge Medication List: Ambulatory Orders Amlodipine Besylate/Benazepril [Lotrel 5-10 mg Capsule] 5 mg PO DAILY 12/18/13 Atorvastatin Ca [Lipitor] 20 mg PO HS 12/18/13 Benazepril HCl 10 mg PO DAILY 07/10/18 Isosorbide Mononitrate [Isosorbide Mononitrate ER] 30 mg PO DAILY 07/10/18 Sitagliptin Phosphate [Januvia] 100 mg PO DAILY 07/10/18 Aspirin [ASA -] 81 mg PO DAILY tab.chew 07/11/18 Metoprolol Tartrate [Lopressor -] 25 mg PO BID #60 tablet 07/11/18 Ranitidine [Zantac -] 150 mg PO DAILY tablet 07/11/18 This patient is new to me today: No Emergency Visit: Yes ED Registration Date: 07/09/18 Care time: The patient presented to the Emergency Department on the above date and was hospitalized for further evaluation of their emergent condition. Critical Care patient: No - Discharge Referral Referred to [facility] No
== END 2018-07-11 17:32 | disposition home or self-care (01) ==
LOC: JER 18:46 → JERBED 22:20 → J4W 07-10 18:30
PROVIDERS: ADMIT Internal Medicine; ATTEND Internal Medicine
PROC: 3E0234Z Introduction of Serum, Toxoid and Vaccine into Muscle, Percutaneous Approach (ICD-10-PCS; principal; 2018-07-09)
DX: R07.89 Other chest pain (principal); R00.2 Palpitations; R00.1 Bradycardia, unspecified; I10 Essential (primary) hypertension; I25.10 Atherosclerotic heart disease of native coronary artery without angina pectoris; E11.9 Type 2 diabetes mellitus without complications; E78.5 Hyperlipidemia, unspecified; Z95.5 Presence of coronary angioplasty implant and graft; Z88.2 Allergy status to sulfonamides; Z79.82 Long term (current) use of aspirin; Z79.84 Long term (current) use of oral hypoglycemic drugs; Z23 Encounter for immunization
CPT/HCPCS: 36415; 71046-TC-FY; 78452-TC; 80048; 80053; 80061; 81003; 82550; 82962; 83036; 83721; 83735; 84100; 84443; 84484; 85025; 85027; 85610; 90471; 90670; 93005; 93010; 93017; 93306-TC; 99285-25; A9502; G0378

== ENCOUNTER 2018-07-25 09:58 | Emergency (ER) | payer OTHER ==
--- NOTE | 2018-07-25 10:16 | PDOC ---
Attending Attestation - [facility] HPI: 07/25/18 13:29 Patient is a 67 year old female with a significant past medical history of CAD s /p stenting in 2011, DM, HTN, HLD, who was brought by EMS to the ED with complaints of weakness that began this morning. As per family, patient woke this morning feeling increased weakness, as well as nausea, vomiting and dizziness. They reports patient experienced near syncopal episode in which they controlled her fall, prompting them to call EMS to have her brought to the ED for further evaluation. As per EMS patient was experiencing hypotension while en route to the ED stating her B/P was found to be 70/60, manually and automatically. Upon arrival, patient began to experience agonal breathing followed by cardiac arrest at 9:54 am with compressions being conducted immediately after. The documented timeline there after is as follows: 9:56 am Atropin #1,10:01 am Epi #1, Compressions 10:01am, pulse check 10:03am, Epi #2 10 :04am, B/P found to be 101/79 at 10:07 am followed by 80/74 at 10:08 am, Epi #3 10:18am, Compressions 10:21am, EPi#4 10:24, pulsecheck 10:25, compressions 10:25 , pulse curt 58 10:28, curt 31 10:31, atropine 10:32, epi5 10:43, 10:35 compressions, 10:36 pulse check, 10:36 epi6, 10:38 pulsecheck, 10:39 22 GA left shoulder, 10:40 epi7, 10:40 15 GA IO, 10:40 pulse check, pulse check curt 56 10 :40, 10:47 compressions, 10:48 epi 8, Time of declared 10:52am. Denies chest pain, sob. Denies nausea, vomiting. Denies fevers, chills. Denies diarrhea, constipation. Denies dysuria, hematuria. Denies trauma to affected area. Denies contact with sick individuals, out of state travelling. Denies any other symptoms. Allergies: Sulfa Social history: No smoking. No alcohol.No illicit drugs. Surgical history: Stenting in june of 2012, Hysterectomy, PMD: Dr. Graham, Not on staff. <Samson Vázquez - Last Filed: 07/25/18 13:29> - Resident Resident Name: Ashish Arzate - ED Attending Attestation I have performed the following: I have examined & evaluated the patient, The case was reviewed & discussed with the resident, I agree w/resident's findings & plan, Exceptions are as noted - Physicial Exam PE: GENERAL: Pale, unresponsive. HEAD: No signs of trauma EYES: PERRLA, EOMI, sclera anicteric, conjunctiva clear ENT: Auricles normal inspection, hearing grossly normal, nares patent, oropharynx clear without exudates. Moist mucosa NECK: Normal ROM, supple, no lymphadenopathy, JVD, or masses LUNGS: Agonal breathing. HEART: Distant heart sounds. ABDOMEN: Soft, protuberant. No guarding, no rebound. No masses EXTREMITIES: Normal range of motion, no edema. No clubbing or cyanosis. No cords, erythema, or tenderness NEUROLOGICAL: Limited- patient unresponsive. SKIN: Warm, Dry, normal turgor, no rashes or lesions noted. - Critical Care Time Total Critical Care Time: 60 Critical Care Statement: The care of this patient involved high complexity decision making to prevent further life threatening deterioration of the patient 's condition and/or to evaluate & treat vital organ system(s) failure or risk of failure. - Medical Decision Making Pt presented unresponsive, found to be pulseless on arrival. ACLS protocol initiated. Patient had ROSC more than once, however, each time, she would become bradycardic and go back into PEA. Initial echo with poor contractility, but later it worsened to the point that there were no meaningful contractions. Patient was given multiple rounds of epi and atropine. Started on levophed and dopamine, did not improve. After more than 1 hour of ACLS protocol, patient with no cardiac activity on echo. Time of 10:52. <Kinga Pat - Last Filed: 07/25/18 15:16> Procedures - Central Line Central Line Lumen: triple Central Line Position: femoral (R), femoral (L) Complications: none Progress: Attempted femoral central line placement once on each side. Was able to get a flash of blood each time, however, unable to thread the wire. - Bedside Ultrasound Bedside Ultrasound: Cardiac Remarks: Poor contractility. No pericardial effusion. - Intubation Intubation Method: orotracheal Blade used: Mac Tube Size (Fr): 7.5 Tube position @ lip (cm): 23 Tube position confirmed by: Direct visualization, CO2 detector, Breath sounds Breath Sounds after Intubation: equal Intubation Complications: no complications - Additional Procedures Additional Procedures: other Progress: Bedside FAST exam with no free fluid. Bedside scan of aorta normal caliber. <Kinga Pat - Last Filed: 07/25/18 15:16>
[2018-07-25] MEDS ORDERED: SODIUM CHLORIDE 2,000 ML IV STA (10:17)
[2018-07-25] MEDS ORDERED: ATROPINE SULFATE 1 MG/10 ML DISP.SYRIN IVPUSH ONE (10:18)
[2018-07-25] MEDS ORDERED: NOREPINEPHRINE BITARTRATE 4 MG/4 ML ML IV ONE (10:19)
[2018-07-25] MEDS: NOREPINEPHRINE BITARTRATE 4,000 MCG in DEXTROSE 5%-WATER - 496 ML IV SCH ×2 (10:22→10:48)
[2018-07-25] MEDS ORDERED: NOREPINEPHRINE BITARTRATE 8,000 MCG in DEXTROSE 5%-WATER - 492 ML IV SCH (10:30)
[2018-07-25] MEDS ORDERED: EPINEPHrine 1:10,000 (P-F SYR) 1 MG/10 ML DISP.SYRIN ONE ×2 (10:33→10:49)
[2018-07-25] MEDS ORDERED: DOPAMINE 400 MG/D5W - 400,000 MCG/250 ML INFUS.BAG IVPB ONE (10:35)
[2018-07-25] MEDS: DOPAMINE 400 MG/D5W - 400,000 MCG/250 ML INFUS.BAG IVPB SCH ×2 (10:45→10:48)
[2018-07-25] MEDS ORDERED: ATROPINE SULFATE 1 MG/10 ML DISP.SYRIN ONE (10:52)
--- NOTE | 2018-07-25 11:08 | PDOC ---
History of Present Illness - General Chief Complaint: Cardiac Arrest Stated Complaint: AMS Time Seen by Provider: 07/25/18 10:16 History Source: EMS - History of Present Illness Initial Comments: HPI provided by chart review, EMS and family 07/25/18 11:13 67 yo pmh DM, HTN, HLD, CAD s/p stent years prior with recent admission (07/09- 07/11) for right sided CP and palpitations. Pt BIBA for sudden onset weakness this am. Pt woke up this am, progressively became weaker, had 1 episode of vomiting and collapsed to the floor without LOC, family helped her to the floor. Pt was very weak but conversant when leaving home by ambulance. On arrival to the ED pt was pale, pulseless with agonal breathing. Past History - Past Medical History Allergies/Adverse Reactions: Allergies Allergy/AdvReac Type Severity Reaction Status Date / Time Sulfa (Sulfonamide Allergy Verified 07/09/18 18:49 Antibiotics) Home Medications: Ambulatory Orders Amlodipine Besylate/Benazepril [Lotrel 5-10 mg Capsule] 5 mg PO DAILY 12/18/13 Atorvastatin Ca [Lipitor] 20 mg PO HS 12/18/13 Benazepril HCl 10 mg PO DAILY 07/10/18 Isosorbide Mononitrate [Isosorbide Mononitrate ER] 30 mg PO DAILY 07/10/18 Sitagliptin Phosphate [Januvia] 100 mg PO DAILY 07/10/18 Aspirin [ASA -] 81 mg PO DAILY tab.chew 07/11/18 Metoprolol Tartrate [Lopressor -] 25 mg PO BID #60 tablet 07/11/18 Ranitidine [Zantac -] 150 mg PO DAILY tablet 07/11/18 Cardiac Disorders: Yes (STENT) COPD: No Diabetes: Yes HTN: Yes Hypercholesterolemia: Yes - Surgical History Cardiac Surgery: Yes (stents) - Immunization History Immunization Up to Date: Yes - Suicide/Smoking/Psychosocial Hx Smoking History: Never smoked Hx Alcohol Use: No Drug/Substance Use Hx: No Substance Use Type: None *Physical Exam - Vital Signs Last Vital Signs Temp Pulse Resp BP Pulse Ox 07/25/18 10:20 Moderate Sedation - Procedure Monitoring Vital Signs: Procedure Monitoring Vital Signs Temperature Pulse Rate Respiratory Rate 07/25/18 10:20 Blood Pressure O2 Sat by Pulse Oximetry (%) Medical Decision Making - Medical Decision Making 07/25/18 12:11 67 yo female pmh sig for HTN, HLD, DM, CAD with stent placement presents to the ED at approx 9 50 am abusable and conversant but suddenly became pulseless, pale with agonal breathing while being transported to her bed pt became pale, had agonal breathing and was pulses. ACLS protocol initiated at 9 54 am with multiple rounds of epi, atropine and CPR. Pulse returned briefly with come contractility noted on cardiac US. FAST shows no free fluid around the hear and aorta visualized, not enlarged. Within minutes pt became bradycardic and lost pulses. Pulse return again but very faint and thready. Family members present are pts Daughter (Pal Reynoso) and Daughter in law ( Azra Reynoso) who would like all medical interventions available to be used. Attempted central line on both femoral veins without success due to inability to thread while getting non pulsitile dark blood. IO placed and 2 pressers ( Levo and Dopamine) running simultaneously. Pt curt down again, pulses lost again, CPR, epi done without return of pulses and pt no longer has cardiac contractility through multiple rounds of CPR. Time of called at 10 52 am. [place] release number: [id number] *DC/Admit/Observation/Transfer - Discharge Dispostion Disposition: - Referrals - Patient Instructions - Post Discharge Activity
[2018-07-25 11:50] VITALS: BP 0/0; BMI 30.2
[2018-07-25 11:54] VITALS: PULSE 0
== END 2018-07-25 16:08 | disposition expired ==
LOC: JER 09:58
PROC: 3E033GC Introduction of Other Therapeutic Substance into Peripheral Vein, Percutaneous Approach (ICD-10-PCS; principal; 2018-07-25)
PROC: 3E0337Z Introduction of Electrolytic and Water Balance Substance into Peripheral Vein, Percutaneous Approach (ICD-10-PCS; 2018-07-25)
PROC: 5A12012 Performance of Cardiac Output, Single, Manual (ICD-10-PCS; 2018-07-25)
PROC: 0BH17EZ Insertion of Endotracheal Airway into Trachea, Via Natural or Artificial Opening (ICD-10-PCS; 2018-07-25)
DX: I46.9 Cardiac arrest, cause unspecified (principal); I10 Essential (primary) hypertension; E78.5 Hyperlipidemia, unspecified; I25.10 Atherosclerotic heart disease of native coronary artery without angina pectoris; Z95.5 Presence of coronary angioplasty implant and graft; E78.00 Pure hypercholesterolemia, unspecified; E11.9 Type 2 diabetes mellitus without complications
CPT/HCPCS: 31500; 92950; 96361; 96374; 99285-25; J7030